=== PATIENT | male | born 1940 | race Caucasian/White ===

== ENCOUNTER 2017-03-01 12:14 | Emergency (ER) | payer MEDICARE, OTHER ==
[2017-03-01 12:47] LABS: URINE MUCUS NONE SEEN (Up to 25%); URINE RBC NONE SEEN (0-5/hpf); URINE SQUAMOUS EPITHELIAL CELL NONE SEEN (<= 15/hpf); URINE WBC NONE SEEN (0-4/hpf)
[2017-03-01 12:54] LABS: URINE APPEARANCE CLEAR; URINE BACTERIA NONE SEEN (<10/hpf); URINE BILIRUBIN NEGATIVE (NEGATIVE); URINE BLOOD NEGATIVE (NEGATIVE); URINE COLOR YELLOW; URINE GLUCOSE NORMAL (NEGATIVE); URINE KETONE 5mg/dL (NEGATIVE); URINE LEUKOCYTE ESTERASE NEGATIVE (NEGATIVE); URINE NITRITE NEGATIVE (NEGATIVE); URINE PROTEIN 10mg/dL (trace) (NEG - TRACE); URINE SPECIFIC GRAVITY 1.025 (0.001-1.035); URINE UROBILINOGEN 0.2mg/dL (Normal) (NEG-1mg/dL)
[2017-03-01 13:02] LABS: BASOPHIL# 0.1 X 10^3uL (0.0-0.1); EOSINOPHILS 0.4 % (0.0-6.0); HEMATOCRIT 51.7 % (42.0-54.0); HEMOGLOBIN 17.9 g/dL (14.0-18.0); LYMPHOCYTES 23.8 % (20.0-40.0); LYMPHOCYTES# 1.8 X 10^3uL (0.8-3.8); MEAN CELL VOLUME 87.7 fL (80.0-100.0); MEAN CORPUS. HGB CONCENTRATION 34.7 g/dL (32.0-36.0); MEAN CORPUSCULAR HEMOGLOBIN 30.4 pg (29.0-35.0); MEAN PLATELET VOLUME 7.6 fL (7.4-10.4); MONOCYTES 6.4 % (2.0-10.0); MONOCYTES# 0.5 X 10^3uL (0.2-1.0); NEUTROPHILS 68.4 % (54.0-75.0); NEUTROPHILS# 5.4 X 10^3uL (2.6-6.7); PLATELET COUNT 210 X 10^3uL (130-440); RED CELL DISTRIBUTION WIDTH 13.2 % (11.5-14.5); WHITE BLOOD COUNT 7.8 X 10^3uL (3.9-10.7)
[2017-03-01 13:06] LABS: ALBUMIN 4.7 g/dL (3.5-5.0); ALKALINE PHOSPHATASE 57 U/L (38-126); ALT 36 U/L (21-72); AST 28 U/L (17-59); BILIRUBIN, DIRECT 0.3 mg/dL (0.0-0.4); BILIRUBIN, TOTAL 1.2 mg/dL (0.2-1.3); BLOOD UREA NITROGEN 28 mg/dL (9-20); CALCIUM 9.3 mg/dL (8.4-10.2); CHLORIDE 103 mmol/L (98-107); EST GLOMERULAR FILTRATION RATE > 60 mL/min; GLUCOSE 117 mg/dL (70-100); LIPASE 140 U/L (23-300); POTASSIUM 4.1 mmol/L (3.5-5.1); SODIUM 141 mmol/L (137-145); TOTAL PROTEIN 8.1 g/dL (6.3-8.2)
--- NOTE | 2017-03-01 13:42 | CT REPORT ---
HISTORY: Right lower quadrant abdominal pain. COMPARISON: None. TECHNIQUE: This examination was performed using automated exposure control, adjustment of mA or kV according to patient size, and/or use of iterative reconstruction technique. Multiple contiguous axial images were obtained from the lung bases through the pubic symphysis following administration of intravenous con trast. 100cc Isovue 300 and contrast. FINDINGS: The visualized lung parenchyma and cardiac structures are unremarkable. Abdomen/pelvis: The liver is normal in appearance without a mass or evidence of intrahepatic ductal d ilatation. The gallbladder is unremarkable, there is no cholelithiasis or pericholecystic fluid. Th e spleen is normal in appearance. There is no pancreatic mass or ductal dilatation. There are no adrenal masses. The right and left k idneys are normal in appearance. There is a nonobstructive 3 mm calculus in the inferior pole calyx of the left kidney. No mass or hydronephrosis is noted. There is a nonobstructed benign-appearing bowel gas pattern. There is diverticulosis of the sigmoid c olon without inflammatory complication. No free air or pneumatosis. The appendix is well-visualized a nd appears normal. No significant free fluid is noted. There is no mesenteric edema or inflammatory process. Vascular structures of the abdomen and pelvis are unremarkable. No pathologic periaortic adenopathy. Pelvis demonstrates no free fluid. No mass or adenopathy. The bladder is unremarkable. Bony structures demonstrate marked multilevel degenerative disc disease with near complete loss of th e disc space, vacuum disc phenomena, endplates gross's and marginal osteophytes from T10-T11 through L5-S1. IMPRESSION: 1. The appendix is within normal limits. 2. Diverticulosis of the sigmoid colon without inflammatory complication. 3. Nonobstructive left nephrolithiasis. 4. Marked multilevel degenerative disc disease. Results were communicated to RAYA SALDANA at 03/01/2017 1:38 PM. Final Electronic Signature: This report was electronically signed by Dayne Gomez MD on 03/01/2017 1: 40 PM. [facility] /
--- NOTE | 2017-03-01 13:52 | ER PHYSICIAN DOCUMENTATION ---
Physician Documentation [facility] Name:Leif Delcid Age:76 yrs Sex:Male :1940 Arrival Date:03/01/2017 Time:12:14 Bed4 Private MD:Ahsan Dubose ED, John Disposition: 03/01/17 13:44 Discharged to Home/Self Care. Impression: Abdominal Pain, Right Lower Quadrant. - Condition is Good. - Discharge Instructions: ABDOMINAL PAIN, Unkown Cause, (Male). - Medical Reconciliation form form. - Follow up: Ahsan Dubose; When: 4- 6 days; Reason: Continuance of care. - Problem is new. - Symptoms have improved. HPI: 03/01 13:17 This 76 yrs old Male presents to ER via Private Vehicle with complaints of jm Abdominal Pain. 13:17 The patient presents with abdominal pain right lower quadrant. Onset: The jm symptoms/episode began/occurred 2 day(s) ago. The symptoms do not radiate. Associated signs and symptoms: Pertinent positives: vomiting, Pertinent negatives: constipation, dysuria, fever. The symptoms are described as dull. Modifying factors: the symptoms are aggravated by nothing. Severity of pain: At its worst the pain was moderate. The patient has not experienced similar symptoms in the past. The patient has not recently seen a physician. 76 yo M w 2 days of constant RLQ abd pain. Pt has not seen a doctor since he was 3 years old, so his friend thought he should be seen when he complained this long. Historical: - Allergies: No known drug Allergies; - Home Meds: 1. None - PMHx: None; - PSHx: Prostetic eye left; - Tetanus: unknown. - Ebola Screening: : No symptoms or risks identified at this time. . - Immunization history: Flu Vaccine unknown. - Social history: Smoking status: Patient states was never smoker of tobacco. Patient uses alcohol occasionally. Patient/guardian denies using marijuana. ROS: 13:33 Constitutional: Negative for fatigue, fever, malaise. jm 13:33 Eyes: Negative for blurry vision. 13:33 Abdomen/GI: Positive for abdominal pain. 13:33 All other systems are negative. Exam: 13:34 Constitutional: The patient appears alert, awake. jm 13:34 Eyes: Periorbital structures: appear normal, Conjunctiva: normal. 13:34 ENT: Mouth: is normal, Voice: is normal. 13:34 Neck: Thyroid: appears normal, Trachea: is midline with no obvious abnormalities. 13:34 Cardiovascular: Rate: normal, Rhythm: regular. 13:34 Respiratory: Respirations: normal, Breath sounds: are normal. 13:34 Abdomen/GI: Bowel sounds: normal, Palpation: abdomen is soft and non-tender, Pt points to RLQ, but has no palpable pain. . 13:34 Back: pain, is absent, CVA tenderness, is absent. 13:34 : CVA tenderness, is absent, Bladder: is normal. 13:34 Skin: injury, is not appreciated, no rash present. 13:34 Neuro: Mentation: is normal, Memory: is normal. 13:34 Psych: Behavior/mood is pleasant, Affect is calm. Vital Signs: 12:26 BP 159 / 95; Pulse 74; Resp 18; Temp 98.3; Pulse Ox 92% on R/A; Weight 84.82 kg; Height ma 5 ft. 10 in. (177.80 cm) (R); Pain 8/10; 13:00 BP 144 / 85 (auto/); Pulse 71; ma 13:30 BP 148 / 91 (auto/); Pulse 65; ma 12:26 Body Mass Index 26.83 (84.82 kg, 177.80 cm) fl MDM: 12:44 Patient medically screened. 13:41 Differential diagnosis: appendicitis, non-specific abd pain, Pyelonephritis. Data reviewed: vital signs, nurses notes, lab test result(s), radiologic studies, and as a result, I will discharge patient. Counseling: I had a detailed discussion with the patient and/or guardian regarding: the historical points, exam findings, and any diagnostic results supporting the discharge/admit diagnosis, lab results, the need for outpatient follow up, with the patient's primary care provider. ED course: Unsure of cause of pain even before the CT, but the CT was negative. . 03/01 12:55 Order name: UA W/ MICRO -CULTURE IF IND; Complete Time: 13:13 EDMS 03/01 13:04 Order name: CBC AUTO DIF, MDIF/RMOR IF IND; Complete Time: 13:13 EDMS 03/01 13:07 Order name: BASIC METABOLIC PANEL; Complete Time: 13:13 EDMS 03/01 13:07 Order name: HEPATIC PANEL; Complete Time: 13:13 EDMS 03/01 13:07 Order name: LIPASE; Complete Time: 13:13 EDMS 03/01 13:44 Order name: CAT SCAN; ABD/PEL W [id number] EDMS 03/01 12:30 Order name: NPO; Complete Time: 13:49 ma Dispensed Medications: 13:49 Not Given (Patient Refused): Zofran 4 mg IVP once over 2 mins ma Signatures: Mitra Mijares, RN RN Lele Awan MD MD jm
--- NOTE | 2017-03-01 13:52 | ER NURSING DOCUMENTATION ---
Nurse's Notes [facility] Name:Leif Delcid Age:76 yrs Sex:Male :1940 Arrival Date:03/01/2017 Time:12:14 Bed4 Private MD:Ahsan Dubose Diagnosis:Abdominal Pain, Right Lower Quadrant Presentation: 03/01 12:17 Acuity: IVANIA 3 ma 12:24 Presenting complaint: Patient states: Pt describes RLQ pain for 2 days States had one ma small emesis 2 days ago, nothing else since No diarrhea, no urinary symptoms. Transition of care: Home. 12:24 Method Of Arrival: Private Vehicle ma Triage Assessment: 12:26 General: Appears in no apparent distress, well developed, well nourished, well groomed, ma Behavior is cooperative. GI: Abdomen is flat, Abd is soft and non tender X 4 quads. 12:27 Pain: Complains of pain in right upper quadrant. ma Historical: - Allergies: No known drug Allergies; - Home Meds: 1. None - PMHx: None; - PSHx: Prostetic eye left; - Tetanus: unknown. - Ebola Screening: : No symptoms or risks identified at this time. . - Immunization history: Flu Vaccine unknown. - Social history: Smoking status: Patient states was never smoker of tobacco. Patient uses alcohol occasionally. Patient/guardian denies using marijuana. Screenin:27 Infectious Disease Risk None. Abuse screen: Denies threats or abuse. Nutritional ma screening: No deficits noted. Assessment: 13:50 Reassessment: Patient appears in no apparent distress at this time. ma Vital Signs: 12:26 BP 159 / 95; Pulse 74; Resp 18; Temp 98.3; Pulse Ox 92% on R/A; Weight 84.82 kg; Height ma 5 ft. 10 in. (177.80 cm) (R); Pain 8/10; 13:00 BP 144 / 85 (auto/); Pulse 71; ma 13:30 BP 148 / 91 (auto/); Pulse 65; ma 12:26 Body Mass Index 26.83 (84.82 kg, 177.80 cm) ma ED Course: 12:15 Patient arrived in ED. ds 12:15 Ahsan Dubose is Private Physician. ds 12:17 Mitra Mijares, JORI is Primary Nurse. ma 12:17 Triage completed. ma 12:27 Valuables Given to family. Patient has correct armband on for positive identification. ma Placed in gown. Bed in low position. Call light in reach. Side rails up X 1. Adult w/ patient. Pulse Ox - RN Monitoring Only NIBP On - RN Monitoring Only. 12:40 Inserted peripheral IV: 20 gauge in left forearm. ty 12:43 Lele De La O MD is Attending Physician. rojas 13:[address] jason 13:43 Ahsan Dubose is Referral Physician. rojas 13:50 Discontinued IV bleeding controlled, pressure dressing applied, No redness/swelling at mi site. Administered Medications: 13:49 Not Given (Patient Refused): Zofran 4 mg IVP once over 2 mins mi Outcome: 13:44 Discharge ordered by . rojas 13:51 Discharged to home ambulatory. ma 13:51 Condition: stable 13:51 Discharge instructions given to patient, Instructed on discharge instructions, follow up and referral plans. Demonstrated understanding of instructions. 13:51 Patient left the ED. mi 03/02 10:28 Discharge F/U Call: Spoke with: patient. Are you having any pain? no. Overall Care on lp a scale of 1-10 with 10 being the best care, you rate our care as: the rating of 10. Signatures: Mitra Mijares RN Caryl Landa ma, RN RN lp Srot, Lay, Reg Reg Lele Bustamante MD MD jm Abbott, Laura lea
== END 2017-03-01 13:51 | disposition home or self-care (01) ==
LOC: ER 12:14
DX: R10.31 Right lower quadrant pain (principal); R11.10 Vomiting, unspecified
CPT/HCPCS: 74177; 80048; 80076; 81001; 83690; 85025; 99284; 99285